=== PATIENT | male | born 1985 | race African-American/Black ===

== ENCOUNTER 2018-11-18 18:53 | Emergency (ER) | payer SELFPAY ==
[~2018-11-18] VITALS: Ht 182.9 cm; Wt 91.0 kg
[2018-11-18] MEDS ORDERED: ACETAMINOPHEN 500MG TABLET PO ONE (19:30)
[2018-11-19 17:53] VITALS: BP 125/80
== END 2018-11-19 19:10 | disposition left against medical advice (07) ==
LOC: ER 18:53
DX: F19.129 Other psychoactive substance abuse with intoxication, unspecified (principal); F17.210 Nicotine dependence, cigarettes, uncomplicated; Z59.0 Homelessness
CPT/HCPCS: 99283; Z7610

== ENCOUNTER 2023-09-09 15:35 | Emergency (ER) | payer MEDICAID, OTHER ==
[~2023-09-09] VITALS: Ht 185.4 cm; Wt 84.0 kg
[2023-09-09] MEDS ORDERED: gabapentin (15:45)
[2023-09-09 15:46] VITALS: BP 128/83; PULSE 82; RESP 18; TEMP 98; O2SAT 99
== END 2023-09-09 20:59 | disposition left against medical advice (07) ==
LOC: ER 15:35
DX: R10.9 Unspecified abdominal pain (principal); Z53.21 Procedure and treatment not carried out due to patient leaving prior to being seen by health care provider